=== PATIENT | female | born 1980 | race Caucasian/White ===

== ENCOUNTER 2021-07-10 12:35 | Emergency (ER) | payer MEDICAID, SELFPAY ==
[2021-07-10 12:49] VITALS: BP 111/70; PULSE 73; RESP 18; TEMP 36.4; O2SAT 100
--- NOTE | 2021-07-10 12:54 | ED.GENADULT ---
HPI - General Adult General Chief complaint: Unspecified Stated complaint: Infected finger,Tongue Sore Time Seen by Provider: 07/10/21 13:29 Source: patient and RN notes reviewed Mode of arrival: ambulatory Limitations: no limitations History of Present Illness HPI narrative: 41-year-old female presents with multiple concerns. She reports red, swollen, tender area near the nail of the fifth digit of her right hand. Reports she noticed the area couple days ago, popped the area and got out a small amount of pus. She reports the area still has a scab, is tender and swollen. She denies fever, decreased sensation, strength, range of motion of the digit. In a separate complaint she reports white painful areas on both sides of her tongue that have been there for several days. She reports she has had similar instance in the past that went away on its own. She denies intervention for the tongue lesions. She denies trouble swallowing, swollen lips. She denies bleeding, drainage from the areas. MD complaint: Paronychia Related Data Home Medications Medication Instructions Recorded Confirmed citalopram 10 mg PO DAILY 07/10/21 07/10/21 ergocalciferol (vitamin D2) 1,250 mcg PO DAILY 07/10/21 07/10/21 hydrochlorothiazide 12.5 mg PO DAILY 07/10/21 07/10/21 levothyroxine [Euthyrox] 175 mcg PO DAILY 07/10/21 07/10/21 losartan 50 mg PO DAILY 07/10/21 07/10/21 Allergies Allergy/AdvReac Type Severity Reaction Status Date / Time No Known Allergies Allergy Unknown Verified 07/10/21 13:19 Review of Systems Review of Systems: CONSTITUTIONAL: Denies malaise, chills, sweats, or fever. ENT: Reports lesions on both lateral sides of the tongue SKIN: Reports swollen, painful area near the nailbed of the fifth digit of the right hand MUSCULOSKELETAL: Denies myalgia. All systems reviewed & are unremarkable except as noted in HPI and below PMFSH Comments At time of signature, agree with nursing past medical, surgical, social and family history. There is no relevant family history pertinent to the presenting complaint Exam Narrative: GENERAL: Well-appearing, well-nourished, and in no acute distress. HEAD: Normocephalic EYES: PERRLA, conjunctivae clear ENT: Nares clear. Mucous membranes moist. Oropharynx without erythema. To white ulcers noted to the left lateral tongue. Tonsils not enlarged and without exudate. NECK: Supple. No lymphadenopathy CHEST: No respiratory distress. Speaks in full sentences. HEART: Regular rate and rhythm. SKIN: Warm, dry, no rash. 0.5 cm area of erythema, induration, tenderness with scab noted to the proximal edge of the nailbed of the fifth digit of the right hand consistent with paronychia NEURO: Alert and oriented x3. No focal deficits. Cranial nerves II through XII grossly intact PSYCH: Normal mood and affect Course Course Emergency Course: Patient is aware of diagnosis, understands and agrees to treatment plan. Anticipatory guidance given. Patient agrees to follow-up as directed and is aware of reasons to seek care at the emergency department. Portions of this record may have been created with voice recognition software Vital Signs Vital signs: Vital Signs Temperature 97.6 F 07/10/21 12:49 Pulse Rate 73 07/10/21 12:49 Respiratory Rate 18 07/10/21 12:49 Blood Pressure 111/70 07/10/21 12:49 Pulse Oximetry 100 07/10/21 12:49 Temperature 97.6 F 07/10/21 12:49 Pulse Rate 73 07/10/21 12:49 Respiratory Rate 18 07/10/21 12:49 Blood Pressure 111/70 07/10/21 12:49 Pulse Oximetry 100 07/10/21 12:49 Reviewed. Medical Decision Making MDM Narrative Medical decision making narrative: Exam findings show no acute concerns or changes; patient is non-toxic appearing and is in no distress. Patient is appropriate for outpatient treatment and follow-up. Vital Signs Vital Signs: Vital Signs Temperature 97.6 F 07/10/21 12:49 Pulse Rate 73 07/10/21 12:49 Respiratory Rate 18
== END 2021-07-10 13:40 | disposition home or self-care (01) ==
PROVIDERS: Emergency Provider Nurse Practitioner; PCP Physician Assistant
DX: L03.011 Cellulitis of right finger (principal); K14.0 Glossitis; I10 Essential (primary) hypertension; E11.9 Type 2 diabetes mellitus without complications; E03.9 Hypothyroidism, unspecified
CPT/HCPCS: 99213; G0463

== ENCOUNTER → 2021-07-14 02:20 | Outpatient (CLI) | payer MEDICAID, SELFPAY ==
[2021-07-14 20:12] LABS: SARS-CoV-2 RNA PCR Negative
== END ==
PROVIDERS: PCP Physician Assistant; Visit Provider Internal Medicine Gastroenterology
DX: Z01.812 Encounter for preprocedural laboratory examination (principal); Z20.822 Contact with and (suspected) exposure to COVID-19
CPT/HCPCS: C9803; U0003; U0005

== ENCOUNTER 2021-07-17 01:10 | Day surgery (SDC) | payer MEDICAID, SELFPAY ==
[2021-07-11 14:04] VITALS: BMI 37.3
--- NOTE | 2021-07-17 09:19 | WPDANESEPPF ---
Anes - Initial Pre Proc Eval Procedure: Operation Date: 07/17/21 10:45 Proposed Procedures p Esophagogastroduodenoscopy - Cody Merida MD Date/Time: 07/17/21 09:19 Surgeon: Cody Merida MD Pre Op Diagnosis: dysphagia Patient Data Age: 41 Gender: F Height: 1.73 m Weight: 111.3 kg Allergies Allergy/AdvReac Type Severity Reaction Status Date / Time No Known Allergies Allergy Unknown Verified 07/17/21 10:03 Home Medications Medication Instructions Recorded Confirmed Type Magic Mouthwash (Dr. Burrell) 10 ml PO Q4H PRN #120 ml 07/10/21 07/11/21 Rx cephalexin 500 mg PO QID 10 Days #40 cap 07/10/21 07/11/21 Rx citalopram 10 mg PO DAILY 07/10/21 07/11/21 History ergocalciferol (vitamin D2) 1,250 mcg PO DAILY 07/10/21 07/11/21 History hydrochlorothiazide 12.5 mg PO DAILY 07/10/21 07/11/21 History levothyroxine [Euthyrox] 175 mcg PO DAILY 07/10/21 07/11/21 History losartan 50 mg PO DAILY 07/10/21 07/11/21 History liraglutide [Victoza 3-Caleb] 1.8 mg SUBCUT DAILY 07/11/21 07/11/21 History simvastatin 20 mg PO HS 07/11/21 07/11/21 History Patient hx anesthesia problems: none Family hx anesthesia problems: none PMFSH Past Medical History Medical History (Updated 07/17/21 @ 09:20 by Giovanny Courtney MD) Depression Diabetes HTN (hypertension) Hypercholesterolemia Hypothyroidism Obesity Social History Social History Smoking status: Former smoker Tobacco type: e-cigarettes/vaping Alcohol intake: never Substance use: never Substance use type: does not use Living arrangements: with family Spiritual care concerns: No Anes - Eval Final PreProcedure Day of Procedure 07/17/21 09:19 Patient weight: obese Heart: regular rate and rhythm Lungs: clear to auscultation and normal air movement Airway: Mallampati scale class II Neurological: alert and oriented Last oral intake: >/= 8 hours ASA classification: III Emergent: no Anesthetic plan: proceed Anesthesia type and monitoring: general GIVS Informed Consent: The patient's anesthetic plan and its attendant risks and benefits were discussed with the patient/family/POA. Questions were solicited and answers provided to the satisfaction of the patient/family/POA.
[2021-07-17] MEDS: LACTATED RINGERS 1,000 ML 150 ML IV CONT (10:07)
[2021-07-17 10:09] LABS: Glucose Point of Care 126 mg/dl (65-105)
[2021-07-17 10:11] VITALS: BP 119/76; PULSE 66; RESP 20; TEMP 36.4; O2SAT 100; BMI 36.1
--- NOTE | 2021-07-17 10:23 | WPDGICN ---
Assessment and Plan Assessment and plan (1) Dysphagia: Code(s): R13.10 - Dysphagia, unspecified Status: Acute Assessment and Plan: Difficulty swallowing for the last year is suspicious for esophageal narrowing. Appears to be incidenatlly related to recent tonsillectomy. An EGD will be performed. Possible dilatation. Also to assess need for daily PPI therapy. (2) Epigastric abdominal pain: Code(s): R10.13 - Epigastric pain Status: Acute Assessment and Plan: Patient has had ongoing epigastric pain since a history of a gastric ulcer 5 years ago. She may have recurrent ulcer versus GE reflux disease. EGD will be performed. Likely may benefit from regular daily use of PPI therapy. (3) History of gastric ulcer: Code(s): Z87.11 - Personal history of peptic ulcer disease Status: Acute GI Consult Note Consult date/time: 07/17/21 10:23 HPI: Cathie Grullon is a 41 year old female Complains of difficulty swallowing. Patient has a history of gastric ulcers identified by Dr. Munguia in 2013. Since that time she has taken omeprazole intermittently on a p.r.n. basis. She reports that she takes it 2 to 3 times a week because of epigastric pain. Over the last 1 year she has had difficulty swallowing. One year ago she reports having tonsillectomy. Since that time she has had difficulty with food passing. It tends to be more solid foods. Food tends to catch in her throat. She swallows liquids with no difficulty. She denies any weight loss or bleeding. Family history is noncontributory. Review of Systems Review of Systems: All systems reviewed & are unremarkable except as noted in HPI and below PMFSH Past Medical History Medical History (Updated 07/17/21 @ 10:25 by Cody Merida MD) Depression Diabetes HTN (hypertension) Hypercholesterolemia Hypothyroidism Obesity Social History Social History Smoking status: Former smoker Tobacco type: e-cigarettes/vaping Alcohol intake: never Substance use: never Substance use type: does not use Living arrangements: with family Spiritual care concerns: No Meds Home Medications and Allergies Home Medications Medication Instructions Recorded Confirmed Type Magic Mouthwash (Dr. Burrell) 10 ml PO Q4H PRN #120 ml 07/10/21 07/11/21 Rx cephalexin 500 mg PO QID 10 Days #40 cap 07/10/21 07/11/21 Rx citalopram 10 mg PO DAILY 07/10/21 07/11/21 History ergocalciferol (vitamin D2) 1,250 mcg PO DAILY 07/10/21 07/11/21 History hydrochlorothiazide 12.5 mg PO DAILY 07/10/21 07/11/21 History levothyroxine [Euthyrox] 175 mcg PO DAILY 07/10/21 07/11/21 History losartan 50 mg PO DAILY 07/10/21 07/11/21 History liraglutide [Victoza 3-Caleb] 1.8 mg SUBCUT DAILY 07/11/21 07/11/21 History simvastatin 20 mg PO HS 07/11/21 07/11/21 History Allergies Allergy/AdvReac Type Severity Reaction Status Date / Time No Known Allergies Allergy Unknown Verified 07/17/21 10:03 Vital Signs Vital Signs - 24 hr 07/17/21 10:11 Temperature 97.5 F L Pulse Rate 66 Respiratory Rate 20 Blood Pressure 119/76 Pulse Oximetry 100 Exam Narrative: Physical exam reveals patient be alert. Vital signs are stable. HEENT exam is unremarkable. Patient is anicteric. Lungs are clear to auscultation and percussion. Heart is without murmur or extra sounds. Abdominal exam bowel sounds are present soft nontender with no organomegaly. Rectal exam is deferred at this time.
[2021-07-17] MEDS: BENZOCAINE (*SP) 60 ML SPRAY CAN (HURRICAINE) 1 SPRAY MUCOUS MEM (10:36)
[2021-07-17 10:45] VITALS: BP 117/75; PULSE 76; RESP 20; O2SAT 96
[2021-07-17 10:55] VITALS: BP 94/59; PULSE 64; RESP 20; O2SAT 100
[2021-07-17 11:05] VITALS: BP 113/73; PULSE 60; RESP 20; O2SAT 100
== END 2021-07-17 11:16 | disposition home or self-care (01) ==
PROVIDERS: PCP Physician Assistant; Visit Provider Internal Medicine Gastroenterology
PROC: 0DJ08ZZ Inspection of Upper Intestinal Tract, Via Natural or Artificial Opening Endoscopic (ICD-10-PCS; CPT 43235; principal; 2021-07-17 10:45)
DX: R13.19 Other dysphagia (principal); K44.9 Diaphragmatic hernia without obstruction or gangrene; K22.2 Esophageal obstruction; E11.9 Type 2 diabetes mellitus without complications; I10 Essential (primary) hypertension; E78.00 Pure hypercholesterolemia, unspecified; E03.9 Hypothyroidism, unspecified; Z87.891 Personal history of nicotine dependence; R13.10 Dysphagia, unspecified; E66.9 Obesity, unspecified; Z68.36 Body mass index [BMI] 36.0-36.9, adult; Z87.19 Personal history of other diseases of the digestive system
CPT/HCPCS: 43450; 82948; J2704; J7120

== ENCOUNTER 2021-07-24 18:25 | Emergency (ER) | payer MEDICAID, SELFPAY ==
[2021-07-24 18:44] VITALS: BP 117/79; PULSE 79; RESP 20; TEMP 36.3; O2SAT 99
--- NOTE | 2021-07-24 19:31 | ED.EXTPRO ---
HPI - Extremity Problem History of Present Illness HPI Narrative: 41 yo female presents to the ED c/o finger pain. She has had pain in the right little finger for 2 weeks. This started with a pustule at the base of the fingernail. She was put on keflex, which she completes. The pustule popped. She now has swelling, redness, and burning pain to the areas proximal to the nail. Related Data Home Medications Medication Instructions Recorded Confirmed citalopram 10 mg PO DAILY 07/10/21 07/11/21 ergocalciferol (vitamin D2) 1,250 mcg PO DAILY 07/10/21 07/11/21 hydrochlorothiazide 12.5 mg PO DAILY 07/10/21 07/11/21 levothyroxine [Euthyrox] 175 mcg PO DAILY 07/10/21 07/11/21 losartan 50 mg PO DAILY 07/10/21 07/11/21 liraglutide [Victoza 3-Caleb] 1.8 mg SUBCUT DAILY 07/11/21 07/11/21 simvastatin 20 mg PO HS 07/11/21 07/11/21 Allergies Allergy/AdvReac Type Severity Reaction Status Date / Time No Known Allergies Allergy Unknown Verified 07/24/21 18:47 Review of Systems Review of Systems: All systems reviewed & are unremarkable except as noted in HPI and below PMFSH Past Medical History Medical History Depression Diabetes HTN (hypertension) Hypercholesterolemia Hypothyroidism Obesity Social History Social History Smoking status: Former smoker Tobacco type: e-cigarettes/vaping Alcohol intake: never Substance use: never Substance use type: does not use Spiritual care concerns: No Exam Const: General: healthy appearing, no acute distress and alert Orientation/consciousness: patient oriented x3 Resp: Effort & Inspection: normal respiratory effort Auscultation: clear to auscultation bilaterally, no rales, no rhonchi and no wheezes Cardio: Jugular venous distension: no JVD Rate: regular rate Rhythm: regular rhythm Heart sounds: no murmurs Other: Brisk capillary refill in affected finger Skin: Other: erythema proximal to right fifth fingernail Neuro: General: patient oriented x3 and moves all extremities Speech: normal speech Other: distal sensation intact Extrem: Other: Moderate swelling distal to DIP in right fifth finger. Full ROm Psych: Appearance: well kempt Affect: normal affect Course Vital Signs Vital signs: Vital Signs Temperature 36.3 C L 07/24/21 18:44 Pulse Rate 79 07/24/21 18:44 Respiratory Rate 20 07/24/21 18:44 Blood Pressure 117/79 07/24/21 18:44 Pulse Oximetry 99 07/24/21 18:44 Temperature 36.3 C L 07/24/21 18:44 Pulse Rate 79 07/24/21 18:44 Respiratory Rate 20 07/24/21 18:44 Blood Pressure 117/79 07/24/21 18:44 Pulse Oximetry 99 07/24/21 18:44 Procedures Abscess I/D hand: Date of Incision: 07/24/21 Side (if applicable): right Local Anesthetic: lidocaine 1% Amount of anesthesia used (mL): 2 Technique: needle aspiration Amount of fluid expressed (mL): 0.5 Irrigation: Yes Packing used?: none I&D Results: Pus and Blood Complications: pain Abcess I&D Additional Comments: MDM - Extremity (Nontraumatic) MDM Narrative Medical decision making narrative: less pus obtained than expected. Seems to be cellulitis primarily. I will change her to an antibiotic with better staph coverage. It is also possible that this was herpetic mary, although at her time of presentation here it does not have the typical appearance associated with that. Discharge Plan Discharge Clinical Impression: Paronychia of finger of right hand, Cellulitis of finger of right hand Patient Disposition: Home, Self-Care Condition: Stable Instructions: Antibiotic Form, Paronychia (ED), Cellulitis (ED) Prescriptions: New clindamycin HCl 300 mg capsule 300 mg PO Q8H Qty: 30 RF: 0 No Action losartan 50 mg tablet 50 mg PO DAILY RF: 0 levothyroxine [Euthyrox] 175 mcg tab
== END 2021-07-24 19:47 | disposition home or self-care (01) ==
PROVIDERS: Emergency Provider Emergency Medicine; PCP Physician Assistant
DX: E11.9 Type 2 diabetes mellitus without complications (principal); I10 Essential (primary) hypertension; E78.00 Pure hypercholesterolemia, unspecified; E03.9 Hypothyroidism, unspecified; E66.9 Obesity, unspecified; Z68.37 Body mass index [BMI] 37.0-37.9, adult; Z87.891 Personal history of nicotine dependence; L03.011 Cellulitis of right finger; F32.9 Major depressive disorder, single episode, unspecified
CPT/HCPCS: 10060; 10160; 99283

== ENCOUNTER 2022-01-31 08:58 | Emergency (ER) | payer OTHER, SELFPAY ==
[2022-01-31 09:10] VITALS: BP 108/69; PULSE 75; RESP 16; TEMP 37; O2SAT 98
--- NOTE | 2022-01-31 09:28 | ED.EAR ---
HPI - Ear Problem General Chief complaint: Ear Stated complaint: ear pain/sore throat Time Seen by Provider: 01/31/22 09:28 Source: patient Mode of arrival: ambulatory Limitations: no limitations History of Present Illness HPI Narrative: 41-year-old female presents with complaint of pain to bilateral ears, ringing in ears for several days. Afebrile. Reports intermittent sinus pressure, postnasal drainage for the past several weeks. States that she cannot take antihistamines because they make her drowsy. Drives a schoolbus. All systems reviewed and negative except as noted above. Related Data Home Medications Medication Instructions Recorded Confirmed citalopram 10 mg PO DAILY 07/10/21 01/31/22 ergocalciferol (vitamin D2) 1,250 mcg PO DAILY 07/10/21 01/31/22 hydrochlorothiazide 12.5 mg PO DAILY 07/10/21 01/31/22 levothyroxine [Euthyrox] 175 mcg PO DAILY 07/10/21 01/31/22 losartan 50 mg PO DAILY 07/10/21 01/31/22 liraglutide [Victoza 3-Caleb] 1.8 mg SUBCUT DAILY 07/11/21 01/31/22 simvastatin 20 mg PO HS 07/11/21 01/31/22 Allergies Allergy/AdvReac Type Severity Reaction Status Date / Time No Known Allergies Allergy Unknown Verified 01/31/22 09:26 Review of Systems Review of Systems: CONSTITUTIONAL: Denies fever, chills, or sweats. EYES: Denies visual changes, redness, or discharge. ENT: Denies rhinorrhea, congestion, sore throat. Reports pain to bilateral ears, tinnitus, sinus pressure, postnasal drainage. CARDIOVASCULAR: Denies chest pain, palpitations, or edema. RESPIRATORY: Denies cough or dyspnea. GASTROINTESTINAL: Denies abdominal pain, nausea, vomiting, or diarrhea. GENITOURINARY: Denies dysuria or hematuria. SKIN: Denies rash or itching. MUSCULOSKELETAL: Denies back pain, joint pain, or myalgia. NEUROLOGIC: Denies headache, numbness, or weakness. PSYCHIATRIC: Denies anxiety or depression. All other systems reviewed are negative, except as documented in HPI. [facility] Past Medical History Medical History Depression Diabetes HTN (hypertension) Hypercholesterolemia Hypothyroidism Obesity Social History Social History Smoking status: Former smoker Tobacco type: e-cigarettes/vaping Alcohol intake: never Substance use: never Substance use type: does not use Spiritual care concerns: No Comments At time of signature, agree with nursing past medical, surgical, social and family history. There is no relevant family history pertinent to the presenting complaint. Exam Narrative: GENERAL: This is a well-nourished, well-developed patient, in no apparent distress. HEAD: normocephalic, atraumatic. EYES: PERRL. Sclera clear/white. Vision is grossly intact. EARS: External ears normal, auditory canals clear and without drainage. Hearing grossly intact. Fluid noted to bilateral TMs with air bubbles. Scarring noted to right TM. NOSE: External nose normal with no obvious nasal discharge, nares without redness, no rhinorrhea. No sinus pressure THROAT: Mucous membranes moist, postnasal drainage to posterior pharynx, mild erythema. NECK: Neck supple, non-tender without lymphadenopathy, masses or thyromegaly. CARDIOVASCULAR: Regular rate and rhythm without murmurs, gallops, or rubs. RESPIRATORY: Clear to auscultation. Breath sounds equal bilaterally. No wheezes, rales, or rhonchi. GASTROINTESTINAL: Abdomen soft, non-tender, nondistended. Bowel sounds are active. No hepato-splenomegaly, or palpable masses. No guarding. SKIN: warm, Dry, intact with no suspicious lesions or rash, good texture and turgor. NEURO: awake, alert, and oriented to person, place and time. There were no obvious focal neurologic abnormalities. EXTREMITIES: No joint tenderness, effusion, or edema noted. No calf tenderness. Negative Homans sign bilaterally. BACK: Nontender without deformity. No CVA tenderness. Course Course Level of C
== END 2022-01-31 09:40 | disposition home or self-care (01) ==
PROVIDERS: Emergency Provider Nurse Practitioner Family; PCP Physician Assistant
DX: H65.03 Acute serous otitis media, bilateral (principal); H93.13 Tinnitus, bilateral; E11.9 Type 2 diabetes mellitus without complications; I10 Essential (primary) hypertension; E78.00 Pure hypercholesterolemia, unspecified; E03.9 Hypothyroidism, unspecified; E66.9 Obesity, unspecified; Z68.35 Body mass index [BMI] 35.0-35.9, adult; F41.9 Anxiety disorder, unspecified; F32.A Depression, unspecified
CPT/HCPCS: 99213; G0463

== ENCOUNTER 2023-09-12 09:32 | Emergency (ER) | payer OTHER, SELFPAY ==
--- NOTE | 2023-09-12 09:33 | ED.EYEPROB ---
HPI - Eye Problem General Chief complaint: Eye Problems Stated complaint: Right Eye Irritation Time Seen by Provider: 09/12/23 09:32 Source: patient Mode of arrival: ambulatory Limitations: no limitations History of Present Illness HPI Narrative: Patient reports old female who presents with 4 days of eyelid swelling, redness and irritation. States she has been using warm compresses and eye drops with no relief. States today it is bigger and looks like it has come to a head. Denies any vision changes, fever, chills. Related Data Home Medications Medication Instructions Recorded Confirmed citalopram 10 mg tablet 10 mg PO DAILY 07/10/21 09/12/23 ergocalciferol (vitamin D2) 1,250 1,250 mcg PO DAILY 07/10/21 09/12/23 mcg (50,000 unit) capsule hydrochlorothiazide 12.5 mg tablet 12.5 mg PO DAILY 07/10/21 09/12/23 levothyroxine 175 mcg tablet 175 mcg PO DAILY 07/10/21 09/12/23 (Euthyrox) losartan 50 mg tablet 50 mg PO DAILY 07/10/21 09/12/23 liraglutide 0.6 mg/0.1 mL (18 mg/3 1.8 mg subcut DAILY 07/11/21 09/12/23 mL) subcutaneous pen injector (Victoza 3-Caleb) simvastatin 20 mg tablet 20 mg PO HS 07/11/21 09/12/23 Allergies Allergy/AdvReac Type Severity Reaction Status Date / Time No Known Allergies Allergy Unknown Verified 09/12/23 09:38 Review of Systems Review of Systems: All systems reviewed & are unremarkable except as noted in HPI and below Constitutional: Constitutional: Denies body ache(s), Denies fever(s), Denies headache(s), Denies malaise and Denies weakness Eyes: Eyes: Denies blurry vision, Denies eye discharge, Reports irritation, Reports itchy eyes, Denies loss of vision, Denies eye pain and Reports other (Eyelid swelling) ENT: Denies otalgia, Denies headache(s), Denies nasal discharge, Denies sinus pain and Denies sore throat Cardiovascular: Cardiovascular: Denies chest pain, Denies irregular heart rhythm and Denies dyspnea Respiratory: Respiratory: Denies dyspnea Gastrointestinal: Gastrointestinal: Denies abdominal pain, Denies diarrhea, Denies nausea and Denies vomiting Musculoskeletal: Musculoskeletal: Denies back pain, Denies myalgias and Denies arthralgias Integumentary/Breasts: Skin/Breast: Denies pruritus and Denies rash Neurologic: Denies headache(s), Denies loss of vision and Denies weakness Psychiatric: Psychiatric: Reports no additional psychiatric complaints Allergic/Immunologic: Allergic/Immunologic: Reports itchy eyes PMFSH Past Medical History Medical History Depression Diabetes HTN (hypertension) Hypercholesterolemia Hypothyroidism Obesity Social History Social History Smoking status: Former smoker Tobacco type: e-cigarettes/vaping Alcohol intake: never Substance use: never Substance use type: does not use Living arrangements: with family Spiritual care concerns: No Comments At time of signature, agree with nursing past medical, surgical, social and family history. There is no relevant family history pertinent to the presenting complaint. Exam Const: General: cooperative, healthy appearing, comfortable, no acute distress and well nourished Nutritional Appearance: well nourished Orientation/consciousness: patient oriented x3 Limitations: no limitations HENMT: Head: normal to inspection, normocephalic and atraumatic Ears: external ears normal Face/Nose/Sinus: Normal external nose present, normal facial exam and face symmetric Face and sinus: normal facial exam and face symmetric Mouth: Yes lip normal Eyes: General: appearance normal, both eyes and all related structures Visual Slaughter: normal visual slaughter by confrontation Alignment and Position: alignment normal and position normal Periorbital: periorbital findings normal Eyelids: eyelid abnormality right upper eyelid inflamed cyst external lid, erythema, swelling and tenderness a
[2023-09-12 09:39] VITALS: BP 124/77; PULSE 68; RESP 20; TEMP 36.9; O2SAT 98
== END 2023-09-12 09:55 | disposition home or self-care (01) ==
PROVIDERS: Emergency Provider Nurse Practitioner Family; PCP Physician Assistant
DX: H00.011 Hordeolum externum right upper eyelid (principal); Z87.891 Personal history of nicotine dependence; E11.9 Type 2 diabetes mellitus without complications; I10 Essential (primary) hypertension; E78.00 Pure hypercholesterolemia, unspecified; E03.9 Hypothyroidism, unspecified; E66.9 Obesity, unspecified; Z68.36 Body mass index [BMI] 36.0-36.9, adult; F32.A Depression, unspecified
CPT/HCPCS: 99213; G0463